=== PATIENT | male | born 1975 | race Caucasian/White ===

== ENCOUNTER 2017-07-29 20:30 | Emergency (ER) | payer SELFPAY ==
--- NOTE | 2017-07-29 21:15 | ED Physician Documentation ---
General Adult - HISTORIAN Historian: patient - HPI Stated Complaint: "Bump" on right side of head Chief Complaint: General Adult Additional Information: Patient who developed two bumps on the side of his head. Had two months ago which he got antibiotics for and it went away. Developed two more about 10 days ago. He tired to zadi one of them and now it has become sore. Onset: days ago Timing: still present Severity: mild - ROS CONST: no problems. denies: fever, chills - PAST HX Past History: other (GERDs) Other History: none Surgeries/Procedures: none Allergies/Adverse Reactions: Allergies Allergy/AdvReac Type Severity Reaction Status Date / Time No Known Allergies Allergy Unverified 07/29/17 20:50 Home Medications: Ambulatory Orders Medication Instructions Recorded Esomeprazole Magnesium [Nexium] 40 mg PO QDAY 07/29/17 Sulfamethoxazole/Trimethoprim 1 each PO DAILY #14 tablet 07/29/17 [Bactrim Ds] - SOCIAL HX Smoking History: less than 1 pack/day (1/2 ppd) Alcohol Use: none Drug Use: none - FAMILY HX Family History: No - VITAL SIGNS Vital Signs: Vital Signs Temp Pulse Resp BP Pulse Ox 98.7 F 92 H 16 137/86 96 07/29/17 20:40 07/29/17 20:40 07/29/17 20:40 07/29/17 20:40 07/29/17 20:40 - REVIEWED ASSESSMENTS Nursing Assessment Reviewed: Yes Vitals Reviewed: Yes Procedures Site: alteral scalp area Blade Size: 11 I & D Procedure: betadine prep, sterile drapes applied, gauze wick placed Progress - Progress Progress: Abscess area was prepped with Betadine. Skin surface with the not anesthetized 1 % Xylocaine. 11 blade schedule was used to make a small incision. Approximately 1 mL of purulent material with express. Wound culture was taken. 2cm of Ioda form packing was placed. General Adult Physical Exam - PHYSICAL EXAM GENERAL APPEARANCE: no distress NECK: normal inspection. No: lymphadenopathy, stiff neck RESPIRATORY: no resp distress, chest non-tender, breath sounds normal. No: wheezes, rales, rhonchi CVS: reg rate & rhythm, heart sounds normal, equal pulses, no murmur, no gallop SKIN: other (1.8 area fluctuant lesion right lateral sclap, 8mm hard nodule to the right lateral scalp area) NEURO: oriented X3, CN's nml as tested, cognition normal Discharge Clincal Impression: Abscess, scalp Prescriptions: Sulfamethoxazole/Trimethoprim [Bactrim Ds] 1 each PO DAILY #14 tablet Referrals: Primary Doctor,No [Primary Care Provider] - 2 Days Additional Instructions: Try to keep the packing in place for the next 3 days then you can remove it. Take Bactrim DS one tablet twice a day for the next seven days. Watch for any fever or chills. If you have any problems return ot he ED or see your primary care provider. Condition: Stable Disposition: 01 HOME, SELF-CARE Decision to Admit: NO Date of Decison to Admit: 07/29/17 Decision Time: 21:30
[2017-07-29] MEDS: Lidocaine 1% 5ml(IM or SUTURE)(PAIN CLINIC) IJ ONE (21:22)
[2017-07-29] MEDS ORDERED: SULFAMETHOXAZOLE/TRIMETHOPRIM 1 EACH TABLET PO ONE (21:43)
[2017-07-29] MEDS: SULFAMETHOXAZOLE/TRIMETHOPRIM 1 EACH TABLET PO SCH (21:45)
[2017-07-29 21:47] VITALS: BP 125/79
== END 2017-07-29 21:45 | disposition home or self-care (01) ==
LOC: ED 20:30
DX: L02.811 Cutaneous abscess of head [any part, except face] (principal)
CPT/HCPCS: 10060; 87070; 99283; A9270

== ENCOUNTER 2017-08-15 21:48 | Emergency (ER) | payer SELFPAY ==
[2017-08-15] MEDS ORDERED: KETOROLAC TROMETHAMINE 30 MG/1ML VIAL IVP ONE (22:02)
--- NOTE | 2017-08-15 22:05 | ED Physician Documentation ---
Abdominal Pain - HISTORIAN Historian: patient - HPI Chief Complaint: Abdominal Pain Additonal Information: while eating, sudden onset, RLat RLQ abd pain. Stabbing, no other complaints. NO prev surgery, no hx of stones. no family history. Onset: minutes Duration: constant, sudden-onset Timing: still present Context: denies: out of country travel, bad food, recent trauma Severity: moderate Quality: pain, sharp, stabbing Associated Symptoms: none Exacerbated by: nothing Relieved by: nothing Further Comments: no - ROS CONST: no problems. denies: recent illness GI/: none. denies: bloody urine, dark urine, problems urinating CVS/RESP: none EYES/ENT: none MS/SKIN/LYMPH: none NEURO/PSYCH: none - SOCIAL HX Smoking History: non-smoker Alcohol Use: none Drug Use: none - FAMILY HX Family History: none, no significant history - PAST HX Past History: GERD Ischemic Bowel Risk Factors: none Other History: none Surgeries/Procedures: none Home Medications: Ambulatory Orders Medication Instructions Recorded Esomeprazole Magnesium [Nexium] 40 mg PO QDAY 07/29/17 Allergies/Adverse Reactions: Allergies Allergy/AdvReac Type Severity Reaction Status Date / Time No Known Allergies Allergy Verified 08/15/17 22:20 - VITAL SIGNS Vital Signs: Vital Signs Temp Pulse Resp BP Pulse Ox 98.2 F 120 H 20 150/93 94 08/15/17 21:49 08/15/17 21:49 08/15/17 21:49 08/15/17 21:49 08/15/17 21:49 - REVIEWED ASSESSMENTS Nursing Assessment Reviewed: Yes Vitals Reviewed: Yes Progress - Progress Progress: discussed his CT findings including HH and thickening of EG junctionn and that he must follow up with his PCP for GI referrel, we'll give him copy of CT report and disc. ED Results Lab/Radiology - Lab Results Lab Results: Lab Results 08/15/17 08/15/17 08/15/17 22:10 22:09 22:09 WBC 13.70 K/ul H K/ul (4.00-12.00) RBC 5.83 M/ul H M/ul (3.90-5.20) Hgb 18.5 g/dL H g/dL (12.0-18.0) Hct 55.5 % H % (37.0-53.0) MCV 95.2 fl fl (80.0-100.0) MCH 31.8 pg pg (28.0-34.0) MCHC 33.4 g/dL g/dL (30.0-36.0) RDW 12.2 % % (11.3-14.3) Plt Count 273 K/mm3 K/mm3 (130-400) Sodium 134 mmol/L L mmol/L (136-145) Potassium 4.0 mmol/L mmol/L (3.5-5.1) Chloride 102 mmol/L mmol/L (98-107) Carbon Dioxide 24 mmol/L mmol/L (22-30) BUN 15 mg/dL mg/dL (9-20) Creatinine 0.90 mg/dL mg/dL (0.66-1.25) Estimated Creat Clear 144 Est GFR ( Amer) > 60 (60 - ) Est GFR (Non-Af Amer) > 60 (60 - ) Glucose 118 mg/dL H mg/dL (74-106) Calcium 8.8 mg/dL mg/dL (8.4-10.2) Total Bilirubin 0.7 mg/dL mg/dL (0.2-1.3) AST 17 U/L U/L (15-46) ALT 32 U/L U/L (13-69) Alkaline Phosphatase 78 U/L U/L (38-126) Total Protein 7.4 g/dL g/dL (6.3-8.2) Albumin 4.0 g/dL g/dL (3.5-5.0) Lipase 94 U/L U/L (23-300) - Radiology Radiology Impressions: aas = nad CT shows gastroenteritis, on further questioning he ate some "bagged chicken" that was supposed to have been precooked, but instructions said to grill, but he just mixed it in with his noodles and ate it, now he tells me that he has been vomiting as well. this most likely is salmonella or simiar - Orders Orders: ED Orders Category Date Time Status Place IV Lock 1T Care 08/15/17 22:05 Active ABD SERIES PA CHEST [RAD] Stat Exams 08/15/[address] ABD & PELVIS W/ CON Stat Exams 08/15/17 Completed CBC/PLATELET/DIFF Routine Lab 08/15/17 22:10 Completed CMP Routine Lab 08/15/17 22:09 Completed LIPASE Stat Lab 08/15/17 22:09 Completed URINALYSIS Routine Lab 08/15/17 Ordered Ketorolac Tromethamine [Toradol] Med 08/15/17 22:02 Discontinued 30 mg IVP NOW ONE Ondansetron HCl/Pf [Zofran 4 mg/2 ml] Med 08/16/17 00:05 Discontinued 4 mg .ROUTE .STK-MED ONE Ondansetron HCl/Pf [Zofran 4 mg/2 ml] Med 08/16/17 00:06 Once 4 mg IVP NOW ONE metroNIDAZOLE [Flagyl] Med 08/16/17 00:06 Once 500 mg PO NOW ONE Abdominal Pain Physical Exam - Physical Exam General Appearance: alert, mild distress EENT: ENT inspection normal, no signs of dehydration NECK: normal inspection RESPIRATORY: no resp distress, chest non-tender, breath sounds normal CVS: reg rate & rhythm, heart sounds normal, equal pulses ABDOMEN: soft, no distension, tenderness. No: rebound, guarding SKIN: warm/dry EXTREMITIES: non-tender, normal range of motion, no evidence of injury NEURO: oriented X3, cognition normal Vital Signs: Vital Signs Temp Pulse Resp BP Pulse Ox 98.2 F 120 H 20 150/93 94 08/15/17 21:49 08/15/17 21:49 08/15/17 21:49 08/15/17 21:49 08/15/17 21:49 Discharge Clincal Impression: Gastroenteritis, Hiatal hernia with GERD Nausea & vomiting Qualifiers: Vomiting type: unspecified Vomiting Intractability: unspecified Qualified Code( s): R11.2 - Nausea with vomiting, unspecified GERD (gastroesophageal reflux disease) Qualifiers: Esophagitis presence: with esophagitis Qualified Code(s): K21.0 - Gastro- esophageal reflux disease with esophagitis Referrals: Primary Doctor,No [Primary Care Provider] - 2 Days Condition: Stable Disposition: 01 HOME, SELF-CARE Decision to Admit: NO Date of Decison to Admit: 08/16/17 Decision Time: 00:10
[2017-08-15 23:17] LABS: MEAN CORPUSCULAR HEMOGLOBIN 31.8 pg (28.0-34.0); MEAN CORPUSCULAR VOLUME 95.2 fl (80.0-100.0)
[2017-08-15 23:19] LABS: eGFR (African) > 60; eGFR (Non-African) > 60
--- NOTE | 2017-08-15 23:54 | Diagnostic Imaging Report ---
MARIAMA HICKEY [facility] [address] [facility] [address] [address] Report Submission Date: Aug 15, 2017 10:57:43 PM NOTCHED BLADE LOADER Patient Study Name: ENDER DOS SANTOS Date: Aug 15, 2017 10:33:54 PM NOTCHED BLADE LOADER Modality Type: CR Gender: M Description: CHEST,ABDOMEN : 75 Institution: [facility] Physician: MARIAMA HICKEY Abdomen series and single view chest History: Right lower quadrant pain Findings: Low lung volumes are observed with bronchovascular crowding at the lung bases. Heart size is normal. Upright and supine abdomen films reveal a normal bowel gas pattern without obstruction, free air, or constipation. No abnormal calcifications are observed. Impression: Low lung volumes and normal bowel gas pattern. Electronically signed on Aug 15, 2017 10:57:43 PM NOTCHED BLADE LOADER by: Jesus COKER
--- NOTE | 2017-08-15 23:55 | Diagnostic Imaging Report ---
MARIAMA HICKEY [facility] [address] [facility] [address] Report Submission Date: Aug 15, 2017 11:54:52 PM CERTIFIED SURGICAL ASSISTANT Patient Study Name: ENDER DOS SANTOS Date: Aug 15, 2017 11:36:00 PM CERTIFIED SURGICAL ASSISTANT Modality Type: CT\SR Gender: M Description: CT ABD & PELVIS W/ CON : 75 Institution: [facility] Physician: MARIAMA HICKEY Computed tomography of the abdomen and pelvis with contrast History: Right lower quadrant pain Findings: Transverse abdomen and pelvis sections are obtained after 87 mL intravenous omnipaque 350. Mild bibasilar atelectasis is observed. A small hiatal hernia contains fat and multiple small paraesophageal lymph nodes. There is borderline mural thickening at the gastroesophageal junction. The liver, spleen, adrenals, kidneys pancreas , great vessels, and mesenteric structures are normal. Gallbladder diameter and wall thickness are normal. Colon is unremarkable. Fluid is present in multiple upper normal caliber small bowel loops. The appendix is normal. Pelvic sections reveal sigmoid diverticulosis without diverticulitis. The urinary bladder is decompressed. The prostate and seminal vesicles are normal in size. Impression: 1. Multiple small paraesophageal lymph nodes and borderline mural thickening at the gastroesophageal junction. Differential includes reactive adenopathy and and less likely esophageal carcinoma with lymph node metastases. Consider endoscopic followup. 2. Nonspecific fluid in multiple upper normal caliber small bowel loops, potentially representing gastroenteritis. 3. Normal appendix. 4. Sigmoid diverticulosis without diverticulitis. Electronically signed on Aug 15, 2017 11:54:52 PM CERTIFIED SURGICAL ASSISTANT by: Jesus COKER
[2017-08-16] MEDS ORDERED: ONDANSETRON HCL/PF 4 MG/ 2ML VIAL ONE (00:05)
[2017-08-16] MEDS ORDERED: ONDANSETRON HCL/PF 4 MG/ 2ML VIAL IVP ONE (00:06)
[2017-08-16] MEDS ORDERED: metroNIDAZOLE 500 MG TABLET PO ONE (00:06)
[2017-08-16 00:33] VITALS: BP 117/88
[2017-08-16 07:16] LABS: APPEARANCE,URINE CLEAR (CLEAR); COLOR,URINE AMBER (YELLOW)
[2017-08-16 07:17] LABS: OCCULT BLOOD,URINE NEGATIVE (NEGATIVE); UROBILINOGEN URINE 0.2 Eu (0.2-1.0)
== END 2017-08-16 00:26 | disposition home or self-care (01) ==
LOC: ED 21:48
DX: K52.9 Noninfective gastroenteritis and colitis, unspecified (principal); K21.9 Gastro-esophageal reflux disease without esophagitis; K44.9 Diaphragmatic hernia without obstruction or gangrene; R11.2 Nausea with vomiting, unspecified
CPT/HCPCS: 74022; 74177; 80053; 81002; 83690; 85025; 87400; 96374; 96375; 99283; J1885; J2405; Q9967; S1016

== ENCOUNTER 2017-08-18 00:28 | Emergency (ER) | payer SELFPAY ==
[2017-08-18] MEDS ORDERED: 0.9 % SODIUM CHLORIDE 1,000 ML IV ONE ×2 (00:43→01:50)
[2017-08-18] MEDS ORDERED: ONDANSETRON HCL/PF 4 MG/ 2ML VIAL IVP ONE (00:43)
[2017-08-18] MEDS ORDERED: fentaNYL CITRATE/PF 100 MCG/ 2ML AMP IVP ONE (00:44)
[2017-08-18 00:51] LABS: EOSINOPHILS % 3.8 % (0.0-6.8); MEAN CORPUSCULAR HEMOGLOBIN 31.5 pg (28.0-34.0); MEAN CORPUSCULAR VOLUME 90.8 fl (80.0-100.0); NEUTROPHILS # 6.9 # k/uL (1.4-7.7)
[2017-08-18 01:08] LABS: eGFR (African) > 60; eGFR (Non-African) > 60
[2017-08-18] MEDS ORDERED: PANTOPRAZOLE SODIUM 80 MG in 0.9 % SODIUM CHLORIDE 50 ML IV ONE (01:49)
[2017-08-18] MEDS ORDERED: PANTOPRAZOLE SODIUM INJ. 40 MG VIAL ONE (01:50)
[2017-08-18] MEDS ORDERED: 0.9 % SODIUM CHLORIDE 100 ML IV ONE (01:50)
--- NOTE | 2017-08-18 01:50 | ED Physician Documentation ---
Abdominal Pain - HISTORIAN Historian: patient - HPI Stated Complaint: N/V Chief Complaint: Abdominal Pain Onset: days ago Duration: worse Timing: worse Context: bad food (questionable "bagged chicken" on 08/14/2017) Severity: severe Quality: pain Associated Symptoms: nausea, vomiting, coffee ground emesis, bloody emesis, diarrhea. denies: bloody stools, grossly bloody stools Exacerbated by: food Relieved by: nothing Further Comments: yes (42 year old male patient presents with complaints of abdominal pain with nausea and vomiting. Patient was seen on 08/15/17 with similar complaints, discharged home with zofran and flagyl. Returns tonight with worsening pain with increased nausea and vomiting, states he has been unable to keep down foods since 08/15/17. C/O severe pain with eating, has vomited up his nexium the past few days, reports multiple episodes of diarrhea. Reports possible aspiration yesterday. Reports black flakes in his vomit, "sometimes red streaks".) - ROS CONST: recent illness (seen in ER 08/15/17) GI/: none CVS/RESP: none EYES/ENT: none MS/SKIN/LYMPH: none NEURO/PSYCH: none - SOCIAL HX Smoking History: cigarettes Alcohol Use: none - FAMILY HX Family History: other (hypertension and diabetes) - PAST HX Past History: GERD Home Medications: Ambulatory Orders Medication Instructions Recorded Esomeprazole Magnesium [Nexium] 40 mg PO QDAY 07/29/17 Ondansetron HCl Rapdis [Zofran Odt] 4 mg PO Q8 PRN 08/18/17 metroNIDAZOLE [Flagyl] 500 mg PO BID 08/18/17 Allergies/Adverse Reactions: Allergies Allergy/AdvReac Type Severity Reaction Status Date / Time No Known Allergies Allergy Verified 08/18/17 01:04 - VITAL SIGNS Vital Signs: Vital Signs Temp Pulse Resp BP Pulse Ox 98.0 F 104 H 16 150/93 95 08/18/17 00:30 08/18/17 00:30 08/18/17 00:30 08/18/17 00:30 08/18/17 00:30 - REVIEWED ASSESSMENTS Nursing Assessment Reviewed: Yes Vitals Reviewed: Yes Progress - Progress Progress: Old records reviewed from 08/15/17. Patient denies any recent weight loss, denies family history of CA. Patient reports pain has returned 8; medicated with dilaudid IV. Patient appears to be in significant pain, denies nausea. Discussed plan of care admission vs transfer. Patient states he does not feel well enough to go home. 219 Call to [facility] for consult and possible transfer. [address] Fernandez. Requested GI consult, old CT results reviewed. VS stable at discharge. ED Results Lab/Radiology - Lab Results Lab Results: Lab Results 08/18/17 08/18/17 08/18/17 01:03 01:02 00:47 WBC RBC Hgb Hct MCV MCH MCHC RDW Plt Count Neut % (Auto) Lymph % (Auto) Brewster % (Auto) Eos % (Auto) Baso % (Auto) Neut # (Auto) Lymph # (Auto) Brewster # (Auto) Eos # (Auto) Baso # (Auto) Reactive Lymphs % Reactive Lymphs # PT 10.8 Seconds Seconds (9.4-11.6) INR 1.03 (0.9-1.2) APTT 25.1 Seconds Seconds (24.5-32.8) Sodium 135 mmol/L L mmol/L (136-145) Potassium 4.5 mmol/L mmol/L (3.5-5.1) Chloride 97 mmol/L L mmol/L (98-107) Carbon Dioxide 28 mmol/L mmol/L (22-30) BUN 11 mg/dL mg/dL (9-20) Creatinine 1.10 mg/dL mg/dL (0.66-1.25) Estimated Creat Clear 117 Est GFR ( Amer) > 60 (60 - ) Est GFR (Non-Af Amer) > 60 (60 - ) Glucose 88 mg/dL mg/dL (74-106) Calcium 9.0 mg/dL mg/dL (8.4-10.2) Total Bilirubin 0.5 mg/dL mg/dL (0.2-1.3) AST 29 U/L U/L (15-46) ALT 29 U/L U/L (13-69) Alkaline Phosphatase 58 U/L U/L (38-126) Total Protein 7.7 g/dL g/dL (6.3-8.2) Albumin 3.9 g/dL g/dL (3.5-5.0) 08/18/17 00:47 WBC 11.00 K/ul K/ul (4.00-12.00) RBC 5.63 M/ul H M/ul (3.90-5.20) Hgb 17.7 g/dL g/dL (12.0-18.0) Hct 51.1 % % (37.0-53.0) MCV 90.8 fl fl (80.0-100.0) MCH 31.5 pg pg (28.0-34.0) MCHC 34.6 g/dL g/dL (30.0-36.0) RDW 12.4 % % (11.3-14.3) Plt Count 285 K/mm3 K/mm3 (130-400) Neut % (Auto) 62.5 % % (39.0-79.0) Lymph % (Auto) 24.8 % % (16.0-50.0) Brewster % (Auto) 6.0 % % (0.0-11.0) Eos % (Auto) 3.8 % % (0.0-6.8) Baso % (Auto) 1.0 (0.0-1.5) Neut # (Auto) 6.9 # k/uL # k/uL (1.4-7.7) Lymph # (Auto) 2.7 # k/uL # k/uL (0.6-4.0) Brewster # (Auto) 0.6 # k/uL # k/uL (0.0-0.9) Eos # (Auto) 0.4 # k/uL # k/uL (0.0-0.6) Baso # (Auto) 0.1 # k/uL # k/uL (0.0-0.5) Reactive Lymphs % 1.9 % % (0.0-5.0) Reactive Lymphs # 0.2 # k/uL # k/uL (0.0-0.8) PT INR APTT Sodium Potassium Chloride Carbon Dioxide BUN Creatinine Estimated Creat Clear Est GFR ( Amer) Est GFR (Non-Af Amer) Glucose Calcium Total Bilirubin AST ALT Alkaline Phosphatase Total Protein Albumin - Radiology Radiology Impressions: Chest 2 views History: Cough and aspiration Findings: Low lung volumes and bilateral lower lobe infiltrates or atelectasis are observed. There is no pleural effusion. Heart size is probably normal. Osseous structures are intact. Impression: 1. Limited exam due to expiratory technique. 2. Moderate bibasilar infiltrate or atelectasis. Electronically signed on Aug 18, 2017 2:12:52 AM SHEET CUTTING OPERATOR by: Jesus Ng - Orders Orders: ED Orders Category Date Time Status Place IV Lock 1T Care 08/18/17 00:44 Active CHEST 2 VIEW [CHEST P.A.&LAT 2 VIEWS] [RAD] Stat Exams 08/18/17 Ordered CBC/PLATELET/DIFF Routine Lab 08/18/17 00:47 Completed CMP Routine Lab 08/18/17 00:47 Completed PT-INR Stat Lab 08/18/17 01:03 Completed PTT Routine Lab 08/18/17 01:02 Completed URINALYSIS Routine Lab 08/18/17 Ordered 0.9 % Sodium Chloride [Normal Saline] 1,000 ml Med 08/18/17 01:50 Discontinued IV NOW 0.9 % Sodium Chloride [Normal Saline] 1,000 ml Med 08/18/17 00:43 Discontinued IV Q1H 0.9 % Sodium Chloride [Sodium Chloride] 100 ml Med 08/18/17 01:50 Discontinued IV .STK-MED HYDROmorphone HCL/PF [Dilaudid] Med 08/18/17 02:11 Once 1 mg IVP NOW ONE Ondansetron HCl/Pf [Zofran 4 mg/2 ml] Med 08/18/17 00:43 Discontinued 4 mg IVP NOW ONE Pantoprazole Sodium [Protonix] Med 08/18/17 01:50 Discontinued 80 mg .ROUTE .STK-MED ONE Pantoprazole Sodium [Protonix] 80 mg Med 08/18/17 01:49 Discontinued 0.9 % Sodium Chloride [Sodium Chloride] 50 ml IV NOW fentaNYL CITRATE/PF [Duragesic] Med 08/18/17 00:44 Discontinued 100 mcg IVP NOW ONE Abdominal Pain Physical Exam - Physical Exam General Appearance: moderate distress (ill appearing patient ) EENT: eye inspection normal, ENT inspection normal, pharynx normal, no signs of dehydration, LIAN, no nystagmus, TM's nml RESPIRATORY: no resp distress, chest non-tender, breath sounds normal CVS: reg rate & rhythm, heart sounds normal, equal pulses, no murmur, no gallop , PMI nml, no JVD, no friction rub, 24 ABDOMEN: soft, no organomegaly, normal bowel sounds, no abdominal bruit, no distension, tenderness (RUQ, epigastric and LUQ). No: McBurney's point tenderne BACK: normal inspection, no CVA tenderness SKIN: normal color, warm/dry, NR, INT, PAL, DR EXTREMITIES: non-tender, normal range of motion, no evidence of injury, no edema , J, PHOTO STYLIST NEURO: oriented X3, CN's nml as tested, motor nml, sensation nml Vital Signs: Vital Signs Temp Pulse Resp BP Pulse Ox 98.0 F 104 H 16 150/93 95 08/18/17 00:30 08/18/17 00:30 08/18/17 00:30 08/18/17 00:30 08/18/17 00:30 Discharge Clincal Impression: Epigastric abdominal pain Nausea & vomiting Qualifiers: Vomiting type: unspecified Vomiting Intractability: unspecified Qualified Code( s): R11.2 - Nausea with vomiting, unspecified Referrals: Primary Doctor,No [Primary Care Provider] - 2 Days Disposition: 02 XFER [id number]-TRM HOSP Decision to Admit: NO Decision Time: 02:35
[2017-08-18] MEDS ORDERED: HYDROmorphone HCL/PF 1 MG/ML DISP.SYRIN IVP ONE (02:11)
[2017-08-18 03:18] VITALS: BP 125/74
--- NOTE | 2017-08-18 05:32 | Diagnostic Imaging Report ---
FABBY GANT (GEORGE) - ER [facility] [address] [facility].[address] [address] Report Submission Date: Aug 18, 2017 2:12:52 AM FURNACE REPAIRER HELPER Patient Study Name: ENDER DOS SANTOS Date: Aug 18, 2017 1:55:37 AM FURNACE REPAIRER HELPER Modality Type: CR Gender: M Description: CHEST : 75 Institution: [facility] Physician: FABBY GANT) - ER Chest 2 views History: Cough and aspiration Findings: Low lung volumes and bilateral lower lobe infiltrates or atelectasis are observed. There is no pleural effusion. Heart size is probably normal. Osseous structures are intact. Impression: 1. Limited exam due to expiratory technique. 2. Moderate bibasilar infiltrate or atelectasis. Electronically signed on Aug 18, 2017 2:12:52 AM FURNACE REPAIRER HELPER by: Jesus COKER
[2017-08-18 06:44] LABS: APPEARANCE,URINE CLEAR (CLEAR); COLOR,URINE YELLOW (YELLOW); OCCULT BLOOD,URINE NEGATIVE (NEGATIVE); UROBILINOGEN URINE 0.2 Eu (0.2-1.0)
== END 2017-08-18 03:10 | disposition short-term general hospital (02) ==
LOC: ED 00:28
DX: R11.2 Nausea with vomiting, unspecified (principal); R10.13 Epigastric pain
CPT/HCPCS: 71020; 80053; 81002; 85025; 85610; 85730; 96361; 96365; 96375; 99283; J1170; J2405; J3010; J7030; S1016

== ENCOUNTER 2017-09-22 01:59 | Emergency (ER) | payer SELFPAY ==
[2017-09-22] MEDS ORDERED: ASPIRIN 81 MG CHEW TAB ONE (02:07)
[2017-09-22] MEDS ORDERED: ASPIRIN 81 MG CHEW TAB PO ONE (02:12)
[2017-09-22 02:25] LABS: BASOPHILS % 0.7 (0.0-1.5); EOSINOPHILS % 3.9 % (0.0-6.8); MEAN CORPUSCULAR HEMOGLOBIN 31.3 pg (28.0-34.0); MEAN CORPUSCULAR VOLUME 93.1 fl (80.0-100.0); MONOCYTES % 5.8 % (0.0-11.0); NEUTROPHILS # 6.6 # k/uL (1.4-7.7)
[2017-09-22 02:34] LABS: eGFR (African) > 60; eGFR (Non-African) > 60
--- NOTE | 2017-09-22 03:08 | ED Physician Documentation ---
Chest Pain - HISTORIAN Historian: patient - HPI Stated Complaint: chest pain Chief Complaint: General Adult Last known Well Date: 09/25/17 Last Known Well Time: 16:00 Last known Well Code/Unknown Code: Known Context: activity (working on furnace in basement) Severity: moderate Quality: pressure Chest Pain Radiation: no radiation Chest Pain Signs/Symptoms: other (lightheaded). denies: nausea, vomiting Worsened By: nothing Relieved By: nothing Further Comments: yes (42 year old male patient presents with intermittent chest discomfort for the past 1 - 1.5 hours. Denies radiation, denies SOB, Nausea or diaphoresis. Patient initially reported CP while sitting.) - ROS CONST: none MS/LYMPH: none GI/: nausea EYES/ENT: none SKIN/ENDO: none NEURO/PSYCH: headache - PAST HX SC risk factors: other (GERD) Allergies/Adverse Reactions: Allergies Allergy/AdvReac Type Severity Reaction Status Date / Time No Known Allergies Allergy Verified 09/22/17 02:16 Home Medications: Ambulatory Orders Medication Instructions Recorded Esomeprazole Magnesium [Nexium] 40 mg PO QDAY 07/29/17 - SOCIAL HX Smoking History: cigarettes - FAMILY HX Family HX: denies: none - VITAL SIGNS Vital Signs: Vital Signs Temp Pulse Resp BP Pulse Ox 98.2 F 87 22 152/88 94 09/22/17 02:00 09/22/17 02:11 09/22/17 02:00 09/22/17 02:00 09/22/17 02:11 - REVIEWED ASSESSMENTS Nursing Assessment Reviewed: Yes Vitals Reviewed: Yes Progress - Progress Progress: Rates pain 3-4/10 while lying on stretcher, decreases to 0-1/10 with palpation. 0310 Patient now reports he had been working on the furnance in the basement multiple times tonight. C/O being light headed. Will check carboxyhemoglobin. 02 on a 5L NC. Carboxyhemoglobin 8.2%. Patient smokes 5-7 cigarrrettes per day. Will leave on NRBM in ER and monitor. - EKG/XRAY/CT EKG: NSR (rate 88, no acute changes, ) ED Results Lab/Radiology - Lab Results Lab Results: Lab Results 09/22/17 09/22/17 09/22/17 02:16 02:16 02:15 WBC 11.50 K/ul K/ul (4.00-12.00) RBC 5.47 M/ul H M/ul (3.90-5.20) Hgb 17.1 g/dL g/dL (12.0-18.0) Hct 50.9 % % (37.0-53.0) MCV 93.1 fl fl (80.0-100.0) MCH 31.3 pg pg (28.0-34.0) MCHC 33.6 g/dL g/dL (30.0-36.0) RDW 12.1 % % (11.3-14.3) Plt Count 303 K/mm3 K/mm3 (130-400) Neut % (Auto) 56.9 % % (39.0-79.0) Lymph % (Auto) 30.0 % % (16.0-50.0) Morgan % (Auto) 5.8 % % (0.0-11.0) Eos % (Auto) 3.9 % % (0.0-6.8) Baso % (Auto) 0.7 (0.0-1.5) Neut # (Auto) 6.6 # k/uL # k/uL (1.4-7.7) Lymph # (Auto) 3.5 # k/uL # k/uL (0.6-4.0) Morgan # (Auto) 0.7 # k/uL # k/uL (0.0-0.9) Eos # (Auto) 0.4 # k/uL # k/uL (0.0-0.6) Baso # (Auto) 0.1 # k/uL # k/uL (0.0-0.5) Reactive Lymphs % 2.6 % % (0.0-5.0) Reactive Lymphs # 0.3 # k/uL # k/uL (0.0-0.8) Sodium 142 mmol/L mmol/L (136-145) Potassium 4.0 mmol/L mmol/L (3.5-5.1) Chloride 101 mmol/L mmol/L (98-107) Carbon Dioxide 26 mmol/L mmol/L (22-30) BUN 8 mg/dL L mg/dL (9-20) Creatinine 0.90 mg/dL mg/dL (0.66-1.25) Estimated Creat Clear 137 Est GFR ( Amer) > 60 (60 - ) Est GFR (Non-Af Amer) > 60 (60 - ) Glucose 88 mg/dL mg/dL (74-106) Calcium 9.3 mg/dL mg/dL (8.4-10.2) Total Bilirubin 0.5 mg/dL mg/dL (0.2-1.3) AST 19 U/L U/L (15-46) ALT 29 U/L U/L (13-69) Alkaline Phosphatase 82 U/L U/L (38-126) CK-MB (CK-2) 0.5 ng/mL ng/mL (0.0-5.6) Troponin I < 0.03 ng/mL L ng/mL (0.03-0.06) Total Protein 7.2 g/dL g/dL (6.3-8.2) Albumin 4.0 g/dL g/dL (3.5-5.0) - Radiology Radiology Impressions: Chest, 1 view History: SUDDEN ONSET OF CHEST PAIN Findings: Comparison is made to exam dated 08/18/2017 . The heart size is normal. The lungs are clear. There is no pleural effusion or pneumothorax identified. The osseous structures are normal. Impression: 1. No acute pulmonary disease. Electronically signed on Sep 22, 2017 2:34:31 AM SKILLED LABOR by: Deno Gilmore - Orders Orders: ED Orders Category Date Time Status Continuous EKG monitoring Q30M Care 09/22/17 02:11 Active Continuous Pulse Oximetry Q30M Care 09/22/17 02:[address] IV Lock 1T Care 09/22/17 02:11 Active CHEST 1 VIEW [RAD] Stat Exams 09/22/17 Ordered CARBOXYHEMOGLOBIN Stat Lab 09/22/17 Ordered CBC/PLATELET/DIFF Routine Lab 09/22/17 02:16 Completed CKMB Stat Lab 09/22/17 02:16 Completed CMP Routine Lab 09/22/17 02:15 Completed TROPONIN I (cTnI) Stat Lab 09/22/17 02:16 Completed Aspirin Med 09/22/17 02:07 Discontinued 324 mg .ROUTE .STK-MED ONE Aspirin Med 09/22/17 02:12 Discontinued 324 mg PO NOW ONE Oxygen Daily Oxygen 09/22/17 02:15 Ordered EKG WITH COMPARISON Stat Ther 09/22/17 Ordered Chest Pain Physical Exam - EXAM General Appearance: no acute distress, alert EENT: eye inspection normal, ENT inspection normal, pharynx normal, no signs of dehydration, LIAN, no nystagmus, TM's nml Respiratory: no resp. distress, nml breath sounds, other (chest tender to palpation. Patient states it feels better with palpation) CVS: reg. 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
[2017-09-22] MEDS ORDERED: ACETAMINOPHEN 500 MG TABLET PO ONE (03:25)
[2017-09-22 04:29] VITALS: BP 147/95
--- NOTE | 2017-09-22 06:47 | Diagnostic Imaging Report ---
FABBY GANT (GEORGE) - ER [facility] [address] [address] Report Submission Date: Sep 22, 2017 2:34:31 AM FUSING LINE INSPECTOR Patient Study Name: ENDER DOS SANTOS Date: Sep 22, 2017 2:26:45 AM FUSING LINE INSPECTOR Modality Type: CR Gender: M Description: CHEST : 75 Institution: [facility] Physician: FABBY GANT) - ER Chest, 1 view History: SUDDEN ONSET OF CHEST PAIN Findings: Comparison is made to exam dated 08/18/2017 . The heart size is normal. The lungs are clear. There is no pleural effusion or pneumothorax identified. The osseous structures are normal. Impression: 1. No acute pulmonary disease. Electronically signed on Sep 22, 2017 2:34:31 AM FUSING LINE INSPECTOR by: Deon COKER
== END 2017-09-22 04:20 | disposition home or self-care (01) ==
LOC: ED 01:59
DX: R07.89 Other chest pain (principal); R51 Headache
CPT/HCPCS: 71010; 71045; 80053; 82375; 82553; 84484; 85025; 99283; S1016

== ENCOUNTER 2017-10-11 00:16 | Emergency (ER) | payer SELFPAY ==
[2017-10-11] MEDS ORDERED: 0.9 % SODIUM CHLORIDE 1,000 ML IV ONE (01:07)
[2017-10-11] MEDS: MECLIZINE HCL 25 MG TABLET PO ONE (01:15)
[2017-10-11] MEDS: ONDANSETRON HCL/PF 4 MG/ 2ML VIAL IVP ONE (01:15)
[2017-10-11] MEDS: 0.9 % SODIUM CHLORIDE 1,000 ML IV SCH (01:34)
--- NOTE | 2017-10-11 01:46 | Diagnostic Imaging Report ---
CHRISTA SHANKS [facility] [address] [facility] [address] [place] [address]. [id number] Report Submission Date: Oct 11, 2017 1:37:05 AM OUTSOLE SPLICER Patient Study Name: ENDER DOS SANTOS W Date: Oct 11, 2017 1:09:24 AM OUTSOLE SPLICER Modality Type: CT\SR Gender: M Description: CT BRAIN W/O : 75 Institution: [facility] Physician: CHRISTA SHANKS Computed tomography of the head without contrast History: PT STATES 500 POUND CONCRETE SLAB FELL ON HIM WHILE SITTING IN A TRACTOR, HEADACHE Findings: Transverse brain sections are obtained without contrast revealing normal-sized ventricles and sulci. Kasper white differentiation is intact. There is no intracranial hemorrhage. Mucosal thickening is present in bilateral maxillary and anterior ethmoid sinuses. The skull is intact. Impression: 1. Intact brain and skull. 2. Chronic sinusitis. Electronically signed on Oct 11, 2017 1:37:05 AM OUTSOLE SPLICER by: Jesus COKER
--- NOTE | 2017-10-11 01:47 | Diagnostic Imaging Report ---
CHRISTA SHANKS [facility] [place] [facility] [address] [facility] [address] [place], [place]. [address] Report Submission Date: Oct 11, 2017 1:41:41 AM REMOTE INPATIENT CODER Patient Study Name: ENDER DOS SANTOS W Date: Oct 11, 2017 1:13:09 AM REMOTE INPATIENT CODER Modality Type: CT\SR Gender: M Description: CT C-SPINE W/O : 75 Institution: [facility] [place] [facility] Physician: CHRISTA SHANKS Computed tomography cervical spine without contrast History: PT STATES 500 POUND CONCRETE SLAB FELL ON HIM WHILE SITTING IN A TRACTOR, NECK PAIN WITH PAIN RADIATING DOWN BOTH ARMS Findings: Transverse cervical spine sections are obtained without contrast. Early C4/C5 degenerative disc disease is observed. There is no fracture, subluxation, paraspinal swelling, or central canal stenosis. Impression: Early C4/C5 spondylosis without fracture. Electronically signed on Oct 11, 2017 1:41:41 AM REMOTE INPATIENT CODER by: Jesus COKER
--- NOTE | 2017-10-11 01:49 | Diagnostic Imaging Report ---
CHRISTA SHANKS [facility] [address] [facility] [address] [place], [place]. [address] Report Submission Date: Oct 11, 2017 1:48:32 AM COPY DIRECTOR Patient Study Name: ENDER DOS SANTOS W Date: Oct 11, 2017 1:20:07 AM COPY DIRECTOR Modality Type: CT\SR Gender: M Description: CT T-SPINE W/O : 75 Institution: [facility] Physician: CHRISTA SHANKS Computed tomography thoracic spine without contrast History: PT STATES 500 POUND CONCRETE SLAB FELL ON HIM WHILE SITTING IN A TRACTOR, BACK PAIN Findings: Transverse thoracic spine sections are obtained without contrast mild bilateral atelectasis and mild emphysema are observed. The thoracic spine is intact without acute fracture, disc space narrowing, or paraspinal swelling. Impression: Intact thoracic spine. Electronically signed on Oct 11, 2017 1:48:32 AM COPY DIRECTOR by: Jesus COKER
--- NOTE | 2017-10-11 01:53 | Diagnostic Imaging Report ---
CHRISTA SHANKS [facility] [address] [facility] [address] [place], [place]. [address] Report Submission Date: Oct 11, 2017 1:50:50 AM COMPUTATIONAL GENETICIST Patient Study Name: ENDER DOS SANTOS W Date: Oct 11, 2017 1:24:22 AM COMPUTATIONAL GENETICIST Modality Type: CT\SR Gender: M Description: CT L-SPINE W/O : 75 Institution: [facility] Physician: CHRISTA SHANKS Computed tomography lumbar spine without contrast History: PT STATES 500 POUND CONCRETE SLAB FELL ON HIM WHILE SITTING IN A TRACTOR, BACK PAIN Findings: Transverse and lumbar spine sections are obtained without contrast. L4/L5 and L5/S1 disc bulging is present. There is no fracture, significant disc space narrowing, spondylolysis, spondylolisthesis, or central canal stenosis. Mild left L5/S1 foraminal stenosis is present. Impression: Mild lower lumbar spondylosis without fracture. Electronically signed on Oct 11, 2017 1:50:50 AM COMPUTATIONAL GENETICIST by: Jesus COKER
[2017-10-11] MEDS: ORPHENADRINE CITRATE 60 MG/2ML IV ONE (02:27)
[2017-10-11] MEDS: KETOROLAC TROMETHAMINE 30 MG/1ML VIAL IVP ONE (02:27)
--- NOTE | 2017-10-11 02:31 | ED Physician Documentation ---
Head Injury - HISTORIAN Historian: patient - HPI Stated Complaint: h/a Chief Complaint: Head Injury Additional Information: hundreds of pounds of bricks fell down on head Onset: today Where: work Timing: still present Context: direct blow Severity: moderate Loss of Consciousness: brief (seconds) Further Comments: no - ROS CONST: no problems CVS/RESP: none EYES/ENT: none MS/SKIN/LYMPH: neck pain, back pain. denies: weakness, numbness, ankle swelling , leg swelling, rash GI/: denies: nausea, vomiting, abdominal pain, problems urinating - PAST HX Past History: other (gerd) Immunizations: referred to PCP Allergies/Adverse Reactions: Allergies Allergy/AdvReac Type Severity Reaction Status Date / Time No Known Allergies Allergy Verified 10/11/17 00:28 Home Medications: Ambulatory Orders Medication Instructions Recorded Esomeprazole Magnesium [Nexium] 40 mg PO QDAY 07/29/17 - SOCIAL HX Smoking History: cigarettes Alcohol Use: occasionally Drug Use: none - FAMILY HX Family History: no significant history - VITAL SIGNS Vital Signs: Vital Signs Temp Pulse Resp BP Pulse Ox 98.1 F 76 16 124/81 93 10/11/17 00:16 10/11/17 03:14 10/11/17 03:14 10/11/17 03:14 10/11/17 03:14 - REVIEWED ASSESSMENTS Nursing Assessment Reviewed: Yes Vitals Reviewed: Yes Progress - Results/Orders Results/Orders: ct head, ct c-spine, ct t-spine and ct l-spine ordered - Progress Progress: pt. given 1 liter ns iv, 8 mg zofran ivp, 25 mg meclizine p.o., 30 mg toradol ivp, 60 mg norflex ivp and 1 mg dilaudid ivp in er with improvement in pain to 4 /10 Critical Care Note - Critical Care Note Total Time (mins): 0 ED Results Lab/Radiology - Lab Results Lab Results: none ordered - Radiology Radiology Impressions: ct head, c-spine, t-spine and l-spine all negative for acute injury - Orders Orders: ED Orders Category Date Time Status Place IV Lock 1T Care 10/11/17 03:[address] BRAIN W/O CONTRAST Stat Exams 10/11/[address] C-SPINE W/O CONTRAST Stat Exams 10/11/[address] L-SPINE W/O CONTRAST Stat Exams 10/11/[address] T-SPINE W/O CONTRAST Stat Exams 10/11/17 Completed 0.9 % Sodium Chloride [Normal Saline] 1,000 ml Med 10/11/17 01:07 Discontinued IV .STK-MED 0.9 % Sodium Chloride [Normal Saline] 1,000 ml Med 10/11/17 01:00 Discontinued IV Q8H HYDROmorphone HCL/PF [Dilaudid] Med 10/11/17 02:44 Discontinued 1 mg IVP NOW ONE Ketorolac Tromethamine [Toradol] Med 10/11/17 02:03 Discontinued 30 mg IVP NOW ONE Meclizine HCl [Antivert] Med 10/11/17 00:54 Discontinued 25 mg PO NOW ONE Ondansetron HCl/Pf [Zofran 4 mg/2 ml] Med 10/11/17 00:54 Discontinued 8 mg IVP NOW ONE Orphenadrine Citrate [Norflex] Med 10/11/17 02:03 Discontinued 60 mg IV NOW ONE Head Injury Physical Exam - Physical Exam General Appearance: alert, moderate distress Head: no obvious injury. No: raccoon eyes, Hernandez's sign Neck: trachea midline, pain with neck movement (tener paravertebral muscles, no step off) Eyes: LIAN, EOMI, lids & conjunct. nml. No: subconjunctival hemorrhag, periorbital edema ENT: nml external inspection, pharynx nml Neuro: alert, oriented x3, cooperative, interactive, mood/affect nml Cranial: nml as tested, no evidence of acute CVA Cerebellar: nml as tested, nml gait. No: abnml Romberg test Sensorimotor: motor nml, sensation nml Resp/CVS: chest non-tender, breath sounds nml, heart sounds nml, no resp. distress, lungs clear, reg. rate & rhythm Abdomen: non-tender, no organomegaly, nml bowel sounds, no distention Back: vertebral point-tendernes, muscle spasm, other (tenderness of paravertebral muscles of cervical, thoracic and lumbar spine, no step off) Skin: warm/dry, normal color, other (no bruising noted) Extremities: nml ROM, gait nml - Monica Coma Score Coma Scale Eye Opening: Spontaneous Coma Scale Verbal: Oriented Coma Scale Motor: Obeys Commands Discharge Clincal Impression: Head injury Qualifiers: Encounter type: initial encounter Qualified Code(s): S09.90XA - Unspecified injury of head, initial encounter Cervical strain Qualifiers: Encounter type: initial encounter Qualified Code(s): S16.1XXA - Strain of muscle, fascia and tendon at neck level, initial encounter Strain of thoracic spine Qualifiers: Encounter type: initial encounter Qualified Code(s): S29.019A - Strain of muscle and tendon of unspecified wall of thorax, initial encounter Lumbar strain Qualifiers: Encounter type: initial encounter Qualified Code(s): S39.012A - Strain of muscle, fascia and tendon of lower back, initial encounter Referrals: Primary Doctor,No [Primary Care Provider] - 2 Days Comments: Discharged home in stable condition to care of ashley with script for parafon forte dsc 500 mg #20 1 p.o. qid, Meloxicam 7.5 mg 1 p.o. bid #10, Hydrocodone with APAP 10/325 1 p.o. qid prn pain #15. Condition: Stable Disposition: 01 HOME, SELF-CARE Decision to Admit: NO Decision Time: 02:31
[2017-10-11] MEDS: HYDROmorphone HCL/PF 1 MG/ML DISP.SYRIN IVP ONE (02:54)
[2017-10-11 03:18] VITALS: BP 124/81
== END 2017-10-11 03:10 | disposition home or self-care (01) ==
LOC: ED 00:16
DX: S09.90XA Unspecified injury of head, initial encounter (principal); S16.1XXA Strain of muscle, fascia and tendon at neck level, initial encounter; S29.019A Strain of muscle and tendon of unspecified wall of thorax, initial encounter; S39.012A Strain of muscle, fascia and tendon of lower back, initial encounter; W20.8XXA Other cause of strike by thrown, projected or falling object, initial encounter; Y93.9 Activity, unspecified; Y92.9 Unspecified place or not applicable; Y99.0 Civilian activity done for income or pay
CPT/HCPCS: 70450; 72125; 72128; 72131; J1170; J1885; J2360; J2405; J7030; 96365; 96372; 96375; 99283; S1016